=== PATIENT | female | born 1955 | race Caucasian/White ===

== ENCOUNTER → 2018-07-12 | Outpatient (CLI) | payer OTHER ==
[~2018-07-12] MED LIST: ACYC800; Amoxicillin500 MG PO; BISA10S PR; CHOL10002; L-LYSINE1000 MG; LUTEIN-ZEAXANT1 EACH; MAGCIT300 PO; Magnesium500 MG; Norco 5-325 Ta1 EACH PO; PROBIOTIC1 EAC1 PO; PROC10 PO; Prednisone20 MG PO; TURMERIC500 MG; VAGIFEM10 MCG; Zofran Odt8 MG SL
[2018-07-14 15:07] LABS: HPV 16 Negative (Negative); HPV 18 Negative (Negative); HPV OTHER HR TYPES Negative (Negative)
== END | disposition home or self-care (01) ==
LOC: LAB SHORT 18:18 → LAB 18:18
PROVIDERS: Obstetrics & Gynecology Gynecology
DX: Z12.72 Encounter for screening for malignant neoplasm of vagina (principal)
CPT/HCPCS: 87624; G0123

== ENCOUNTER → 2019-07-01 | Outpatient (CLI) | payer MEDICARE, OTHER ==
[~2019-07-01] MED LIST changes: +CALCIUM CITRATE; +COPPER; +MAGNESIUM CITRATE; +NORCO PO; +ONDA4ODT MM; +Ultram50 MG PO; +ZINC; +[UNRECOGNIZED DRUG - OTHER]
== END | disposition home or self-care (01) ==
LOC: LAB SHORT 15:00 → LAB EV 15:00
DX: J02.9 Acute pharyngitis, unspecified (principal)
CPT/HCPCS: 87081

== ENCOUNTER → 2020-07-03 | Outpatient (CLI) | payer MEDICARE, OTHER | END | disposition home or self-care (01) | LOC: PLD 14:51 → LAB SHORT 14:51 | DX: L73.9 Follicular disorder, unspecified (principal); L57.0 Actinic keratosis | CPT/HCPCS: 88305 ==

== ENCOUNTER 2020-12-08 19:49 | Emergency (ER) | payer MEDICARE, OTHER ==
[~2020-12-08] VITALS: Ht 162.6 cm; Wt 61.2 kg
[2020-12-08 21:27] LABS: BASOPHILS ABSOLUTE AUTO 0.01 K/mm3 (0.00-0.23); BASOPHILS PERCENT AUTO 0 % (0-2); EOSINOPHILS ABSOLUTE AUTO 0.01 K/mm3 (0.00-0.68); EOSINOPHILS PERCENT AUTO 0 % (0-6); Hemoglobin 13.8 g/dL (11.5-16.0); IMMATURE GRAN ABSOLUTE AUTO 0.01 K/mm3 (0.00-0.10); IMMATURE GRAN PERCENT AUTO 0 % (0-1); LYMPHOCYTES ABSOLUTE AUTO 0.22 K/mm3 (0.84-5.20); LYMPHOCYTES PERCENT AUTO 3 % (21-46); MONOCYTES ABSOLUTE AUTO 0.38 K/mm3 (0.16-1.47); MONOCYTES PERCENT AUTO 6 % (4-13); Mean Corpuscular HGB 31.2 pg (26.0-34.0); Mean Corpuscular HGB Conc 33.7 g/dL (31.5-36.5); Mean Corpuscular Volume 93 fL (80-100); Mean Platelet Volume 11.6 fL (9.1-12.4); NEUTROPHILS ABSOLUTE AUTO 6.12 K/mm3 (1.96-9.15); NEUTROPHILS PERCENT AUTO 91 % (41-73); Platelet Count 187 K/mm3 (150-400); RDW Coefficient Variation 11.2 % (11.7-14.2); RDW Standard Deviation 38.1 fL (35.1-46.3); Red Blood Cell Count 4.43 M/mm3 (3.80-5.20); White Blood Cell Count 6.75 K/mm3 (4.00-11.30)
[2020-12-08 21:51] LABS: Alanine Aminotransfer (ALT/SGP 32 U/L (12-78); Albumin, Blood 3.3 g/dL (3.4-5.0); Alk Phos 74 U/L (50-136); Anion Gap 4 mmol/L (6-16); Aspartate Aminotrans (AST/SGOT 60 U/L (12-37); Bilirubin, Total 0.7 mg/dL (0.1-1.0); Blood Urea Nitrogen 15 mg/dL (8-24); Bun/Creatinine Ratio 25.9 (12.0-20.0); CO2, Blood 26 mmol/L (21-32); Calcium, Blood 8.1 mg/dL (8.5-10.1); Chloride, Blood 104 mmol/L (98-108); Creatinine, Blood 0.58 mg/dL (0.40-1.00); Globulin, Blood 3.4 g/dL (2.2-4.0); Glomerular Filtration Rate >60 (60-); Glucose, Blood 129 mg/dL (70-99); Potassium, Blood 5.3 mmol/L (3.5-5.5); Sodium, Blood 134 mmol/L (136-145); Total Protein, Blood 6.7 g/dL (6.4-8.2)
[2020-12-09 01:46] LABS: Source, Urine Clean Catch
[2020-12-09 01:49] LABS: Bilirubin, Urine Neg (Neg); Blood, Urine Neg (Neg); Glucose Qualitative, Urine Neg (Neg); Ketones, Urine Neg (Neg); Leukocyte Esterase, Urine Neg (Neg); Nitrite, Urine Neg (Neg); Protein, Urine Neg (Neg); Urobilinogen, Urine NORM (Normal)
[2020-12-09 01:50] LABS: Appearance, Urine Clear (Clear); Color, Urine Yellow (P-Yellow)
[2020-12-09] MEDS ORDERED: ONDA4ODT MM (02:15)
[2020-12-09] MEDS ORDERED: Pepcid20 MG PO (02:15)
== END 2020-12-09 02:18 | disposition home or self-care (01) ==
LOC: ER 19:49
PROVIDERS: Emergency Medicine; Physician Assistant
DX: K92.0 Hematemesis (principal); E86.0 Dehydration; R10.13 Epigastric pain; Z88.2 Allergy status to sulfonamides; Z88.0 Allergy status to penicillin; Z88.1 Allergy status to other antibiotic agents
CPT/HCPCS: 36415; 71045; 76705; 80053; 81003; 83690; 83735; 84484; 85025; 86850; 86900; 86901; 93005; 93010; 96374; 99285-25; J2405; J7120

== ENCOUNTER → 2020-12-10 | Outpatient (CLI) | payer MEDICARE, OTHER ==
[~2020-12-10] MED LIST changes: +Pepcid20 MG PO
== END | disposition home or self-care (01) ==
LOC: PLD 12:08 → LAB SHORT 12:08
DX: D48.5 Neoplasm of uncertain behavior of skin (principal)
CPT/HCPCS: 88305

== ENCOUNTER → 2021-10-07 | Outpatient (CLI) | payer MEDICARE, OTHER | END | disposition home or self-care (01) | LOC: LAB 12:20 → LAB SHORT 12:20 | DX: D22.72 Melanocytic nevi of left lower limb, including hip (principal) | CPT/HCPCS: 88305 ==

== ENCOUNTER → 2023-04-04 | Outpatient (CLI) | payer MEDICARE, OTHER | END | disposition home or self-care (01) | LOC: LAB SHORT 10:07 → LAB 10:07 → PLD 10:07 | DX: L70.0 Acne vulgaris (principal) | CPT/HCPCS: 88305 ==

== ENCOUNTER → 2023-10-12 | Outpatient (CLI) | payer MEDICARE, OTHER | LOC: LAB 14:32 → LAB SHORT 14:32 | DX: D48.5 Neoplasm of uncertain behavior of skin (principal); L72.9 Follicular cyst of the skin and subcutaneous tissue, unspecified | CPT/HCPCS: 88304 ==

== ENCOUNTER → 2024-05-02 | Outpatient (CLI) | payer MEDICARE, OTHER | LOC: LAB 15:33 → LAB SHORT 15:33 | DX: N39.0 Urinary tract infection, site not specified (principal) | CPT/HCPCS: 87086 ==